=== PATIENT | male | born 1945 | race Caucasian/White ===

== ENCOUNTER 2018-12-04 11:13 | Inpatient (IN) | payer OTHER, MEDICARE, SELFPAY ==
[2018-10-17 12:59] VITALS: BMI 34.2
[2018-12-03 23:15] VITALS: BP 153/90; PULSE 76; RESP 18; TEMP 37; O2SAT 95
[2018-12-04] VITALS (11 sets, daily range): BP systolic 151–193; BP diastolic 70–95; PULSE 59–69; RESP 9–18; TEMP 36.1–36.7; O2SAT 97–99; BMI 34.2
--- NOTE | 2018-12-04 | DI.RAD.S_ITS ---
PROCEDURE: XR HIP W PEL IF DONE RT 2V INDICATIONS: RIGHT TOTAL HIP POST OPERATIVE TECHNIQUE: 2 view(s) of the hip acquired. COMPARISON: None. FINDINGS: Bones: Patient is status post total right hip arthroplasty, with hardware components in expected positions. The hip joint appears congruent. The visualized bony structures appear intact. Soft tissues: Overlying postoperative changes are noted. No suspicious soft tissue densities. Surgical drain in place. IMPRESSION: Expected immediate postoperative appearance, status post total right hip arthroplasty. Dictated by: Quincy Eaton M.D. on 12/04/2018 at 16:43 Approved by: Quincy Eaton M.D. on 12/04/2018 at 16:44
--- NOTE | 2018-12-04 06:00 | DI.RAD.S_ITS ---
PROCEDURE: XR PELVIS 1-2V INDICATIONS: RIGHT INTEROPERATIVE HIP TECHNIQUE: Intra-operative view of the pelvis and hip acquired. COMPARISON: None. FINDINGS: Bones: Intraoperative devices prior to placement of arthroplasty prostheses are in expected positions. No fractures or suspicious bony lesions. Soft tissues: Overlying surgical retractors are present, along with other intraoperative changes. Dictated by: Florian Rdz M.D. on 12/04/2018 at 15:43 Approved by: Florian Rdz M.D. on 12/04/2018 at 15:43
[2018-12-04] MEDS: LACTATED RINGERS 1,000 ML 42 ML IV ×2 (11:57→15:28)
[2018-12-04] MEDS: ACETAMINOPHEN 325 MG TABLET 975 MG PO ×2 (12:04→20:39)
[2018-12-04] MEDS: CELECOXIB 200 MG CAPSULE PO (12:05)
[2018-12-04] MEDS: PREGABALIN 75 MG CAPSULE PO (12:05)
[2018-12-04] MEDS: VANCOMYCIN 1,000 MG/200 ML PIGGYBACK 200 MG IV (12:40)
--- NOTE | 2018-12-04 13:30 | PM.PREOP ---
Pre-operative Note Interval Note History & Physical reviewed/Exam performed by Physician: Yes Changes to H&P: No
--- NOTE | 2018-12-04 13:30 | PM.OP.1 ---
Operative Date/Time/Diagnoses Date of procedure: 12/04/18 Time of procedure: 13:42 Pre-op diagnosis: right hip AVN, OA Post-op diagnosis: same Procedure & Clinicians Procedure: Right total hip arthroplasty Same procedure as scheduled: Yes Indications: The patient has had progressively worsening right hip pain with radiographic changes consistent with arthritis. Non-operative management has failed and the patient has requested total hip replacement. The risks, benefits and alternatives to surgery were discussed with the patient prior to proceeding. Risks discussed included, but were not limited to, failure to relieve pain, leg length discrepancy, dislocation, stiffness, infection, nerve damage, deep venous thrombosis, pulmonary embolism, stroke, coma, heart attack, permanent paralysis and , as well as the potential need for eventual revision of the prosthetic. Surgeon: [facility] Worker: Ana Maria Gilbert Anesthesia Type: General and Spinal Operative Notes Findings: Severe right hip avascular necrosis, adequate stability Closure Type: primary Specimen(s): none sent Prosthetic devices, grafts, tissues, transplants, or devices: Ly [employer]hew size 60 cup, 60 x 40 neutral liner, size 6 high offset stem +4 sleeve with a 40 mm head Applied: drain(s) Estimated Blood Loss (mL): 250 Blood products transfused: none Procedure in detail: The patient was seen in the pre-operative area, where the patient identified the right hip as the operative site and this was marked with my initials. The patient received pre-operative antibiotics and was taken to the operating room and placed on the operative table in the left lateral decubitus position after satisfactory anesthesia. A multimedia services manager out was performed. The right leg was prepared from the ankle to the iliac crest with ChloroPrep in the usual fashion and draped through sterile drapes. The hip was approached through an approximately 20 cm incision centered over the greater trochanter and curving gently posteriorly as it went proximally. This was carried sharply to the fascia abby, which was divided and retracted with a self retaining retractor. The trochanteric bursa was excised with care being taken to avoid the sciatic nerve, which was identified and protected throughout the case. The short external rotators were incised and the capsulomuscular flap was raised and tagged for later repair. The hip was dislocated, and a femoral neck osteotomy performed approximately 15 mm above the lesser trochanter. Retractors were placed around the femur. The canal was opened with a box cutting osteotome, followed by a T handled reamer and a lateralizing reamer. The chili pepper broach was then used, followed by sequential broaching until there was good stability of the broach in the femur. Retractors were placed to expose the acetabulum. The labrum and central soft tissues were removed. Reaming was performed initially going up in 2 mm increments, then 1 mm increments until good bite was obtained with an odd sized reamer. The cup 1 mm larger than the last reamer was then inserted using the appropriate anteversion guides. A trial neutral liner was placed. The broach was placed in the canal. A trial head and neck were then placed and the hip relocated and checked for leg length and stability. An intraoperative film confirmed the component position and no evidence of fracture. The patient was stable in the position of sleep, of squatting, and could be put through a range of motion with 45 degrees internal rotation without dislocation. At 90 degrees flexion, internal rotation to [70] was possible before dislocation. This was felt to be satisfactory and the appropriate components were opened, and the trials were removed. The acetabular liner was impacted into position. The final stem was then impacted into the prepared femoral canal. A brief Betadine soak was performed while trialing with head options. The hip was meticulously irrigated with normal saline. Finally the femoral head was impacted onto the stem. The acetabulum was cleared of all material and the hip relocated one final time. The capsulomuscular flap was then repaired to the greater trochanter though an awl hole using the tag sutures. The short external rotators were repaired with a nonabsorbable suture. A deep drain was placed and brought out anteriorly. The fascia abby was closed with Vicryl. The subcutaneous layer was closed with barbed sutures and SteriStrips. An Aquacel Ag dressing was applied and the patient was taken to recovery having tolerated the procedure well. Complications: none Post-operative Condition: stable Disposition: Acute Care Plan for aftercare: The patient will be maintained on a standard total hip replacement protocol with weight bearing as tolerated and posterior hip precautions. The patient will receive Aspirin and sequential compression devices for DVT prophylaxis. The patient will be discharged home when safe for the home environment.
[2018-12-04] MEDS: CEFAZOLIN 2 GM/100 ML FROZ.PIGGY IV ×2 (13:40→22:02)
[2018-12-04] MEDS: TRANEXAMIC ACID 1,000 MG VIAL 1000 MG INJ ×2 (14:08→15:30)
--- NOTE | 2018-12-04 14:15 | SUR.OPER ---
Lateral on padded OR bed. Gel axillary roll. Arms secured on padded armboard with pillow supporting top arm. Padded hip positioner braces x4 - anterior and posterior chest and pelvis. Additional gel pad used anterior pelvis. Gel pad under bottom leg from knee to foot and secured with tape over sheet.
[2018-12-04] MEDS: BUPIVACAINE 0.25% W/ EPI 30 ML VIAL 60 ML INJ (14:24)
[2018-12-04] MEDS: BUPIVACAINE LIPOSOME 266 MG/20 ML VIAL INJ (14:24)
[2018-12-04] MEDS: EPINEPHrine 1 MG/ML AMPUL IM (14:26)
[2018-12-04] MEDS: SODIUM CHLORIDE IRRIG SOLUTION 250 ML, POVIDONE-IODINE SPONGE STICKS 1 APPLIC IRR (14:28)
--- NOTE | 2018-12-04 16:26 | SUR.PHASEI ---
stable pacu stay, report attempted, rn unavailable.
[2018-12-04] MEDS: LACTATED RINGERS 1,000 ML 125 ML IV (17:33)
--- NOTE | 2018-12-04 17:35 | SUR.PHASEI ---
late entry: Judith called back, report given, pt left in stable condition.
[2018-12-04] MEDS: DOCUSATE 100 MG CAPSULE PO (20:40)
[2018-12-04] MEDS: METOPROLOL IR 50 MG TABLET 100 MG PO (20:40)
[2018-12-04] MEDS: ASPIRIN EC 81 MG TABLET PO (20:40)
[2018-12-04] MEDS: OXYCODONE IR 5 MG TABLET PO (20:46)
[2018-12-04] MEDS: IBUPROFEN 200 MG TABLET 400 MG PO (20:49)
--- NOTE | 2018-12-04 23:32 | PC.NURSE ---
Post-op notes: Frederick brought from PACU earlier this evening via hospital bed. He was wide awake, Ox3, reporting RLE 'numb' and unable to wiggle toes or feel nurse hand on his leg from hip to toes. Has since regained all sensation to leg & denies any tingling or numbness. Able to stand at side of bed, void using urinal and then take steps around bed with 1 person assist/4ww. VS stable, hypertensive, Metoprolol given as scheduled. RA oxygen 94-98% with continuous pulse ox monitoring tonight. Drsgs to R hip & hemovac sites are CDI, drain with 50 ml drainage. Wearing bilateral SCD's. Medicated with 1 tab Oxycodone & ibuprofen for increasing pain and rising 3/10 along with scheduled Tylenol. Fall precautions in place, patient using nurse call button appropriately & aware to call for any needs or concerns, bed alarm active for safety.
[2018-12-05] MEDS: OXYCODONE IR 5 MG TABLET PO ×2 (00:46→05:41)
[2018-12-05 03:39] VITALS: BP 167/79; PULSE 66; RESP 18; TEMP 36.4; O2SAT 96
[2018-12-05] MEDS: CEFAZOLIN 2 GM/100 ML FROZ.PIGGY IV (05:40)
[2018-12-05] MEDS: IBUPROFEN 200 MG TABLET 400 MG PO (05:41)
[2018-12-05 06:13] LABS: Hemoglobin 12.9 g/dL (13.5-17.5)
[2018-12-05 08:00] VITALS: BP 147/73; PULSE 64; RESP 16; TEMP 36.4; O2SAT 98
[2018-12-05] MEDS: ACETAMINOPHEN 325 MG TABLET 975 MG PO (09:37)
[2018-12-05] MEDS: METOPROLOL IR 50 MG TABLET 100 MG PO (09:37)
[2018-12-05] MEDS: DOCUSATE 100 MG CAPSULE PO (09:38)
[2018-12-05] MEDS: ASPIRIN EC 81 MG TABLET PO (09:38)
[2018-12-05] MEDS: TRAMADOL 50 MG TABLET PO (09:38)
[2018-12-05] MEDS: hydroCHLOROthiazide 25 MG TABLET PO (09:38)
[2018-12-05] MEDS: LEVOTHYROXINE 125 MCG TABLET PO (09:43)
[2018-12-05 09:53] VITALS: PULSE 67; RESP 17; O2SAT 97
--- NOTE | 2018-12-05 10:12 | PT.IIE ---
Current Diagnoses Unilateral primary osteoarthritis, right hip (12/04/18) Surgery Performed Operation Date: 12/04/18 13:45 Actual Procedures p Total Hip Arthroplasty-Posterior(Right) - Katty Ly MD Surgical History (Last Updated 10/17/18 @ 13:20 by Mala Blair, RN) H/O vasectomy (Acute) Hx of hernia repair (Acute ~03/2017) Hx of laminectomy (Acute ~2013) Hx of lumbar discectomy (Acute) Medical History (Last Updated 10/17/18 @ 13:48 by Mala Blair RN) Former smoker (Acute) HLD (hyperlipidemia) (Acute) HTN (hypertension) (Acute) Hypothyroidism (Acute) Kidney stones (Acute) Osteoarthritis (Acute) Pneumonia (Acute) Sleep apnea (Acute) Thinning of skin (Acute) Physical Therapy Inpatient Evaluation/Re-Eval M1 PT/OT-IP Prior Functional Status Start: 12/05/18 12:30 Freq: NEEDED Status: Active Protocol: Document 12/05/18 10:12 AB (Rec: 12/05/18 12:39 AB [id number]) Medical Review Prior Functional Status Medical History Reviewed Yes Communication able to make needs known Mobility and Gait pt stated that he is modified independent with all mobilities and ambulation using SPC Social History Household Members spouse Living Arrangements House Number of Floors (Floors) One Floor Number of Stairs To Enter/Railing? 1 step to enter Home Environment Tub/Shower Home Equipment Front Wheel Walker,Straight Cane,Raised Toilet Seat w/ Armrests,Shower Seat with Backrest,Hand Held Shower,Grab Bars In Shower M2 PT-IP Current Condition Start: 12/05/18 12:30 Freq: NEEDED Status: Active Protocol: Document 12/05/18 10:12 AB (Rec: 12/05/18 12:39 AB [id number]) Physical Therapy Current Condition Current Condition Evaluation Date 12/05/18 Treatment Diagnosis s/p R DORA posterior approach; difficulty in walking Onset Date 12/04/18 Precautions Posterior Hip Precautions No Hip Flexion > 90 degrees,No Hip Internal Rotation,No Hip Adduction Weight Bearing Status Weight Bearing Status Weight Bear as Tolerated M3 PT-IP Subjective Start: 12/05/18 12:30 Freq: NEEDED Status: Active Protocol: Document 12/05/18 10:12 AB (Rec: 12/05/18 12:39 AB [id number]) Subjective Physical Therapy Visit Type Type Initial Evaluation Visit Start Time 10:12 Visit Stop Time 10:52 Total Visit Minutes 40 Number of MANAGER OF HOUSEKEEPING Visits 0 Physical Therapy Visit Comments Patient Comments pt agreed to do PT Therapy Pain Assessment Pain When Pain Assessed At Rest Pain Present Pain Present Pain Reported Location Right Hip Intensity 2 Scale Used Numeric (1 - 10) Pain Management Techniques Apply Cold,Re-positioning, Timing of Activity with Medications M4 PT-IP Mobility and Gait Start: 12/05/18 12:30 Freq: NEEDED Status: Active Protocol: Document 12/05/18 10:12 AB (Rec: 12/05/18 12:39 [id number]) PT-Bed Mobility Assessment Supine to Sit Supine to Sit Standby Assistance Sit to Supine Sit to Supine Standby Assistance Scooting Scooting to Edge of Bed Standby Assistance PT-Transfer Assessment Sit to and From Stand Sit to and from Stand Standby Assistance Equipment Transfer Assistive Device Gait Belt,Front Wheeled Walker Orthotic/Prosthetic Devices or Brace: No Transfers Transfer Destination Chair Transfer Technique pt ambulated using FWW Transfer Ability Level of Assist Standby Assistance Comments Mobility Comments pt educated with hip precautions. completed bed mobility supine <>sit x 2 sets SBA with cues to maintain hip precautions. pt completed sit <>stand x 4 reps SBA with cues to maintain hip precautions. Gait Assessment Gait Gait Assistance Required: Standby Assistance Distance (Feet) 150 Able to Maintain Weight Bearing Status Yes During Gait Assistive Devices Assistive Device Gait Belt,Front Wheeled Walker Orthotic/Prosthetic Devices or Brace: No Gait Deviations General Gait Pattern Antalgic,Decreased Stride Length,Decreased Feet Clearance Factors Limiting Gait Function Factors Limiting Gait Function Decreased Activity Tolerance, Decreased Strength,Limited Range of Motion,Pain,Poor Balance,Poor Safety Awareness Stair Climbing Assessment Evaluation Level of Assist On Stairs Contact Guard Assistance,1 Person Assistance Devices Stair Climbing Assistive Devices Front Wheel Walker Technique/Endurance Stair Climbing Direction Ascend and Descend Stair Climbing Technique Step to Step Number of Steps Climbed 1 Query Text: Stair Climbing Set # Repetitions (reps) 2 Comments Stair Climbing Comments completed up/down platform step using FWW CGA and cues PT-Balance Assessment Sitting Balance and Reactions Static Sitting Balance Ability Good Dynamic Sitting Balance Ability Good Standing Balance and Reactions Static Standing Balance Ability Fair Dynamic Standing Balance Ability Fair Device Used FWW M5 PT-IP Objective Assessments Start: 12/05/18 12:30 Freq: NEEDED Status: Active Protocol: Document 12/05/18 10:12 AB (Rec: 12/05/18 12:39 AB [id number]) Orientation Orientation/Cognition Level of Alertness Alert Orientation Name,Age,Birthday,Month,Date, Year,Day of Week,Place, Situation Safety Awareness Understands Safety Issues Memory Description Short Term Impaired Gross Range of Motion Lower Extremity ROM Assessment Within Functional Limits Strength Lower Extremity Strength Assessment Right Impaired Comments Strength Comments RLE: 3+/5 Coordination Assessment Gross Coordination Gross Coordination WNL Sensation Assessment Sensation Gross Sensation WNL Muscle Tone Muscle Tone WNL Yes M6 PT-IP Treatment Start: 12/05/18 12:30 Freq: NEEDED Status: Active Protocol: Document 12/05/18 10:12 AB (Rec: 12/05/18 12:39 AB [email or web address]) Physical Therapy Treatment Exercises Exercises Heel Slides Education Education Provided Precautions,Weight Bearing Status,Post-Op Packet,Safety M7 PT-IP Assessment and Plan Start: 12/05/18 12:30 Freq: NEEDED Status: Active Protocol: Document 12/05/18 10:12 AB (Rec: 12/05/18 12:39 AB [email or web address]) PT Summary Assessment and Plan Potential Rehabilitation Potential Good Status of Condition at Evaluation Stable Summary Impairments Pain,ROM,Strength,Balance, Coordination,Sensation,Tone, Cognition,Bed Mobility, Transfers,Gait,Activity Tolerance Assessment Summary pt requiring SBA with mobility and plans to go home with spouse to assist him. pt has outpt PT already scheduled. pt may go home when medically stable. Goals Bed Mobility Goal Independent Transfer Goal Independent,Front Wheeled Walker Gait Goal Independent,Front Wheel Walker Gait Distance 200 Other Goals up/down 1 step using FWW mod I Days to Meet Goals 3 Frequency of Treatment Frequency Of Treatment Twice a Day Treatment Plan Physical Therapy Treatment Plan Bed Mobility Training,Transfer Training,Gait Training, Therapeutic Exercise,Balance Retraining,Post Op Education, Discharge Planning,Hot or Cold Pack,Neuromuscular Re-ed, Coordination Retraining,Manual Therapy Other Recommendations and Next Treatment ambulation, stair climbing Focus Recommendations To Nursing Amount of Assist Needed Standby Assistance Discharge Recommendations PT Discharge Recommendations Home with Assistance, Outpatient PT
--- NOTE | 2018-12-05 11:36 | PC.NURSE ---
1120 Pt dcd to home today after lunch. Hemovac dcd, covered site with maritza /veena. in room, pt denies pain.
--- NOTE | 2018-12-05 14:21 | CM.DANOTE ---
Discharge Planning/Care Management DCP: assessment: case received, EMR reviewed. Discussed in Team Rounds. Pt is a 73 year old male who admitted yesterday for a planned R DORA: surgeon: Dr. Williams Ly Payer: [facility]. Medicare A Only. Pt identified his plan for home with spouse support and OUTPT PT in the preop assessment: Dr. Ly has deemed him stable for d/c and PT has cleared him for that setting. Went to check in with pt. NANCY Weiss confirmed he left for home setting about 1100. CM Discharge Assessment Start: 12/05/18 14:15 Freq: Status: Discharge Protocol: Document 12/05/18 14:16 ITV (Rec: 12/05/18 14:16 ITV [id number]) Discharge Planning Assessment Advance Directives? No: Information mailed to patient History Provided By Medical Record Prior Living Arrangements House Household Members spouse Is patient alert and oriented? Yes Discharge Plan Home Review Status In Process Pre-Anesthesia Assessment Start: 10/17/18 12:59 Freq: Status: Discharge Protocol: Document 10/17/18 12:59 CAB (Rec: 10/17/18 13:47 CAB [id number]) Pre-Anesthesia Assessment PAC Comment Pt reviewed through Anesthesia x 2 r/t elevated TSH and AAA. Endocrinology clearance and Aortic US 11/27/18, multiple PCP visits, and prior TSH labs all scanned to record level Patient Also Known As (THEO Adam Patient Information Reviewed Via Phone Assessment Assessment Completed With Patient Diagnostic Results BMP/CMP,CBC,EKG Comment Outside labs/EKG scanned to record Primary Care Provider Celestine Mar Seen Specialist in Last 12 Months Yes Specialist Seen Orthopedist Comment Pt does not want to follow with Dr. Mar any longer Primary Language [place] Judicial Clerk Required No Height 182.88 cm Weight 114.305 kg Body Mass Index (BMI) 34.2 Hearing Ability Normal Visual Assist Glasses Dentition Type Partial- Lower,Full- Upper Barriers to Learning None Other Aids No Hx Anesthesia Reactions No Hx Family Anesthesia Reaction No Hx Malignant Hyperthermia No Hx Blood Transfusions No Anesthesia Review Requested Yes: PAC courtesy re:Elevated TSH alcohol intake current alcohol intake frequency 3 or more drinks per day Smoking Status Former smoker Substance Use Type does not use Pain Present Pain Reported Musculoskeletal Symptoms Abnormal Gait,Difficulty Walking,Joint Pain,Muscle Weakness History of Falling (Recent or History of No ) Patient is completely paralyzed or No completely immobile Prosthesis or Orthotic Device Cane,Front Wheel Walker Mental Status Oriented to own ability Is patient on oxygen? No Does patient have MAGALLON/SOB No Hx Sleep Apnea Yes: Pt states resolved when stopped smoking, no CPAP Currently Taking a Beta Sanjana Yes: Metoprolol Can You Climb a Flight of Stairs Without Yes SOB Hx Chest Pain No Hx SOB No Hx Syncope or Dizziness No Anti-Coagulant Therapy No Has a Building Illuminating Engineer No Cardiac Testing No Hx Pacemaker/ICD No Pacemaker Rep Required? No Cardiac Clearance Received Not Applicable dysphagia No Urinary Catheter Present No Hx Urinary Self Catheterization No Diabetes No: Pre-diabetes by lab HgbA1C 5.8 Date 09/06/18 Hx Drug Resistant Organism No Presence of External or Internal Medical No Devices Have you traveled outside the [facility] in the last 30 days? Marital Status Lives With spouse Prior Living Arrangements House Number of Floors (Floors) One Floor Support System Spouse Patient Discharge Plan Description Return Home Comment Pt advised overnight length of stay per surgeon Feels Safe in Current Environment Yes Been Physically Hurt or Threatened By a No Person in Current Environment Do you have thoughts of harming yourself None or others? Are you currently considering suicide? No Do you have a plan to hurt yourself or No Plan others? Do You Have Any Spiritual Beliefs That No May Affect Your HC Choices? Do You Have Any Cultural Practices That No May Affect Your HC Choices? Who Can We Speak to About Patient's Care Family, friends Identifying Code for Release of Patient Declines to issue Information Health Care Proxy/Next of Kin Juliet () Hearing impaired Health Care Proxy Emergency Contact Name Juliet () Hearing impaired Emergency Contact Advance Directives? No: Information mailed to patient PAC Instructions Durable medical equipment, Medications to take/avoid, Nasal antibiotic,No ETOH/ petroleum product on skin DOS, NPO,Post-op transportation,Pre -surgical wash,Sensory aids, Sturdy shoes/comfortable clothes,Do not bring valuables and remove jewelry
--- NOTE | 2018-12-05 15:04 | P.DS_ITS ---
History of Present Illness History of Present Illness Date Patient Seen: 12/05/18 Time Patient Seen: 07:30 Chief complaint: [id number] Narrative: The patient has had progressively worsening right hip pain with radiographic changes consistent with arthritis. Non-operative management has failed and the patient has requested total hip replacement. The risks, benefits and alternatives to surgery were discussed with the patient prior to proceeding. Risks discussed included, but were not limited to, failure to relieve pain, leg length discrepancy, dislocation, stiffness, infection, nerve damage, deep venous thrombosis, pulmonary embolism, stroke, coma, heart attack, permanent paralysis and , as well as the potential need for eventual revision of the prosthetic. Discharge Providers Provider Date of admission: 12/04/18 11:13 Discharge Date: 12/05/18 Consults: 10/31/18 06:00 Consult to Anesthesiology Routine Comment: Consulting Provider: Anesthesiologist Reason for consultation: Regional block for post operative pain control 11/16/18 12:19 Consult to Anesthesiology Routine Comment: Consulting Provider: Anesthesiologist Reason for consultation: PAC Courtesy re: Elevated TSH Consult to Respiratory Therapy Evaluate & Treat Comment: Physician Instructions: Evaluate and treat Consult to Apprentice Plant Attendant Routine Comment: 11/29/18 07:34 Consult to Respiratory Therapy Evaluate & Treat Comment: Physician Instructions: Evaluate and treat Consult to Apprentice Plant Attendant Routine Comment: 12/04/18 06:00 Consult to Anesthesiology Routine Comment: Consulting Provider: Anesthesiologist Reason for consultation: Regional block for post operative pain control 12/04/18 14:11 Consult to Respiratory Therapy Evaluate & Treat Comment: PAYTON, no CPAP, post DORA Physician Instructions: Evaluate and treat 12/04/18 17:22 Consult to Discharge Planning Routine Comment: Consult to Physical Therapy Evaluate & Treat Comment: Physician Instructions: post op DORA protocol Consult to Respiratory Therapy Evaluate & Treat Comment: Physician Instructions: Evaluate and treat Discharge provider: Leighton Redding PA-C Summary Hospital Course Discharge Diagnosis: s/p Right total hip arthroplasty with posterior approach hypertension Hospital Course: Patient admitted for a right total hip arthroplasty with posterior approach with Dr. Ly. Hospital course was unremarkable. Post op day 1, patient was ready for discharge home. Patient already has prescriptions for oxycodone and vistaril at home. Patient eating and voiding without difficulty or assistance prior to discharge. Patient was mobilizing with physical therapy prior to discharge. Patient has outpatient PT scheduled. Dressing was CDI. ASA 81 mg BID for DVT prophylaxis.. Status at Discharge Cognitive/behavioral status at discharge: oriented Functional status at discharge: uses cane/walker Overall status at discharge: patient is progressing back to baseline Time Spent with Patient Time spent: Less than 30 minutes Exam Vital Signs (past 8 hours): - 12/05/18 08:00 12/05/18 09:53 Temperature 97.5 F L Pulse Rate 64 67 Respiratory Rate 16 17 Blood Pressure 147/73 H Pulse Oximetry 98 97 Oxygen Delivery Method Room Air Oxygen Flow Rate 0 Narrative Exam Narrative: 73 year old male is sitting comfortably in a chair, in no apparent distress. A&Ox3. Dressing is CDI on right anterior hip. Hemovac is in place on right anterior hip. Drainage is sanguineous. Left hip is warm and dry, no lesions or rashes. Sensory function is grossly intact to light touch in lower extremities b/l. Patient is able to actively dorsiflex/plantar flex. Dorsalis pe dis 2+ b/l. Calves are warm, compressible and non-tender to palpation. Objective Labs Result Diagrams: 12/05/18 05:45 Labs: Laboratory Results - last 24 hr 12/05/18 05:45 Hgb 12.9 L Hct 37.0 L Discharge Plan Discharge Plan Patient Disposition: Home Discharge comment: Dcd to home, PT approved. Discharge Med Rec/Prescriptions Prescriptions: New ibuprofen 200 mg tablet 400 mg PO Q4H PRN (Reason: inflammation) Qty: 60 RF: 0 acetaminophen [Tylenol Extra Strength] 500 mg tablet 500 mg PO Q4H PRN (Reason: pain) Qty: 60 RF: 0 aspirin 81 mg tablet,delayed release (DR/EC) 81 mg PO BID Qty: 60 RF: 0 Continued metoprolol tartrate 100 mg Tablet 100 mg PO BID RF: 0 levothyroxine 125 mcg Tablet 125 mcg PO DAILY RF: 0 hydrochlorothiazide 25 mg Tablet 25 mg PO DAILY RF: 0 Discontinued tramadol 50 mg Tablet 50 mg PO DAILY RF: 0 acetaminophen [Tylenol Arthritis Pain] 650 mg Tablet Extended Release 1,300 mg PO Q8H PRN (Reason: Pain) RF: 0 ibuprofen [Advil] 200 mg Tablet 400 mg PO Q6H PRN (Reason: Pain) RF: 0 oxycodone 5 mg Tablet 5 mg PO Q4H PRN (Reason: Pain (Scale Score 4-6)) RF: 0 Follow up/Referrals: Katty Ly MD [Physician] - Provider Discharge Instructions Diet: Regular Activity: Weight bearing as tolerated. Follow [employer] precautions. Cold/Heat Therapy: Continue cold/heat therapy as needed. Skin/Wound/Dressing Care Report to your healthcare provider any signs of infection, such as:: chills, fever, increased pain, unusual drainage and unusual redness Dressing: Keep aquacel dressing dry and in place (can shower, but not soak). If dressing becomes saturated please contact the office. Visit Report/Discharge Packet Instructions: DI for Hip Replacement Discharges patient from system. Discharge Date/Time: 12/05/18 12:07 Quality VTE Deep Vein Thrombosis/Pulmonary Embolism Present on Admission: No
== END 2018-12-05 12:07 | disposition home or self-care (01) | DRG 470 ==
PROVIDERS: Admitting Provider Orthopaedic Surgery; Visit Provider Orthopaedic Surgery
PROC: 0SR90JZ Replacement of Right Hip Joint with Synthetic Substitute, Open Approach (ICD-10-PCS; CPT 27130; principal; 2018-12-04 13:45)
DX: M16.11 Unilateral primary osteoarthritis, right hip (principal); M87.051 Idiopathic aseptic necrosis of right femur; I10 Essential (primary) hypertension; E03.9 Hypothyroidism, unspecified; Z87.891 Personal history of nicotine dependence
CPT/HCPCS: 36415; 72170; 73502; 85014; 85018; 94762; 97161; 97530; C1776; C9290; J0171; J0690; J1100; J2250; J2405; J2704; J3010